=== PATIENT | male | born 1955 | race Caucasian/White ===

== ENCOUNTER 2023-12-31 12:55 | Outpatient (AMB) | payer OTHER, MEDICAID, SELFPAY ==
--- NOTE | 2023-12-31 12:49 | A.SPINEOV_ITS ---
Intake Intake Visit Reasons: Lumbar radiculopathy Intake Note: Mr. Biggs is here today c/o back pain. [employer] Required: No Assessment & Plan Assessment & Plan (1) Neurogenic claudication: Code(s): R29.818 - Other symptoms and signs involving the nervous system Plan Dear Mando, Thank you for referring Patrick to our office today. He is a pleasant 68 y/o male who comes in today with a chief complaint of low back pain with shooting pains into his right posterior thigh. He reports that this has been ongoing for the past 1 year. He is unable to identify any inciting incident. He reports that walking increases his pain. He estimates that he is able to walk 100-200 yards before needing to sit, as the pain is too severe. He states that he is still able to complete his grocery shopping but has to bend over and utilize the shopping cart in order to get around the store. He reports he gets relief from sitting down/lying flat. He states that he has tried several [id number] medications without significant symptom relief. He is currently established with Dr. Nuñez's office and states that he is interested in obtaining cortisone injections at this time. PMH: History of abdominal hernia repair, unsure of date. High blood pressure, hyperlipidemia, angina, GERD. Social hx: The patient reports smoking 1/8th pack of cigarettes per day. He denies alcohol or other substance use. Medications: Lisinopril, nitroglycerin, metoprolol, pantoprazole, spironolactone, aspirin. Allergies: Ciprofloxacin. Physical exam: The patient has 5/5 strength in his upper and lower extremities. He has no sensational deficits. His reflexes are 2+ intact. He rises from a seated position without difficulty. He is able to ambulate well but does hunch over when walking. (-) Miranda's, (-) clonus, (-) straight leg raise bilaterally. Imaging review: MRI of the lumbar spine completed at [facility] shows diffuse spondylosis of the lumbar spine worse at L3, L4, L5. There is endplate edema at L3-4 and L4-5 noted on STIR. There is severe central canal and bilateral foraminal stenosis at L3-4 and L4-5. Impression: Patrick is a pleasant 68-year-old male who comes in today with a chief complaint of low back pain with radiation into his right posterior buttocks. He states that his back pain worsens with ambulation to the point where he is forced to sit after walking for short period of time. His history, physical, and imaging are most consistent with neurogenic claudication secondary to severe central canal stenosis. He is currently being evaluated/treated by Dr. Nuñez who has offered him cortisone injections in the lumbar spine. He reported that he would like to pursue this intervention before considering any surgical options. I encouraged him to do so, and still reviewed what a surgical intervention for this type of problem would entail. He was encouraged to reach back out to our office in the future if he feels as though he has exhausted conservative measures. Thank you for allowing us to care for your patient. The total time spent with this visit with this patient was 45 minutes reviewing history, physical exam, MRI imaging review, and implementation of treatment plan or further diagnostic testing Jonah Wilburn MD,PhD [facility] Coding Level of Care Code New Pt Level 4 (70068) Diagnoses Neurogenic claudication R29.818
== END 2023-12-31 13:20 | disposition home or self-care (01) ==
PROVIDERS: PCP Physician Assistant; Referring Provider Physician Assistant; Visit Provider Physician Assistant
DX: R29.818 Other symptoms and signs involving the nervous system (principal)
CPT/HCPCS: 99204

== ENCOUNTER → 2023-12-31 12:55 | Outpatient (BNVA) | payer OTHER, MEDICAID, SELFPAY | PROVIDERS: PCP Physician Assistant; Visit Provider Physician Assistant ==